=== PATIENT | female | born 1985 | race Caucasian/White ===

== ENCOUNTER → 2020-05-21 18:24 | Outpatient (CLI) | payer OTHER, SELFPAY ==
--- NOTE | 2020-05-21 18:31 | DI.MRI.S_ITS ---
PROCEDURE: MR THORACIC SPINE WO CON INDICATIONS: COLLAPSED VERTEBRA,NOT ELSEWHERE CLASSIFIED,SITE TECHNIQUE: Noncontrast sagittal T1 spine echo and T2 fast spin echo, sagittal STIR, axial T1 and T2 fast spin echo through the thoracic spine. COMPARISON: None. FINDINGS: Image quality: Excellent. Alignment and Curvature: There is normal bony alignment. Bone Marrow: Marrow is of normal overall signal. No acute vertebral body compression fractures. Spinal Cord: Visualized spinal cord is normal in size and signal. Paraspinous Soft Tissues: No paravertebral masses. Miscellaneous: On axial images, central canal and foramina appear widely patent at all scanned levels. Incidental note is made of the presence of a shallow disc protrusion at C6-C7. T12-L1: Cark-ne-mcefodsx right paracentral disc protrusion, which does not abut the cord. It may potentially impinge on the ventral horn of the right T12 nerve root. IMPRESSION: 1. No evidence acute compression fracture. 2. Mild chronic anterior vertebral body height loss involving T11 and T12. 3. At T12-L1 there is a mild to moderate right paracentral disc protrusion which may potentially impinge on the ventral horn of the right T12 nerve root. Question: Does this patient have right T12 dermatomal pain? 4. Incidental note made of a shallow disc protrusion at C6-C7. At C6-C7. Dictated by: Murtaza Godoy M.D. on 05/22/2020 at 8:25 Approved by: Murtaza Godoy M.D. on 05/22/2020 at 8:31
== END ==
PROVIDERS: Referring Provider Family Medicine; Visit Provider Family Medicine
DX: M48.50XA Collapsed vertebra, not elsewhere classified, site unspecified, initial encounter for fracture (principal); M51.25 Other intervertebral disc displacement, thoracolumbar region; M50.223 Other cervical disc displacement at C6-C7 level
CPT/HCPCS: 72146

== ENCOUNTER 2020-12-10 13:52 | Emergency (ER) | payer OTHER, SELFPAY ==
[2020-12-10 14:01] VITALS: BP 115/75; PULSE 66; RESP 18; TEMP 37.3; O2SAT 100
[2020-12-10 15:18] LABS: Add Manual Diff / Slide Review NO; Basophils Absolute Auto 100 /uL (0-100); Basophils Percent Auto 0.9 % (0-2); Eosinophils Absolute Auto 400 /uL (0-450); Eosinophils Percent Auto 3.2 % (2-4); Hemoglobin 12.7 g/dL (12.0-16.0); Lymphocytes Absolute Auto 3100 /uL (1100-4500); Lymphocytes Percent Auto 25.2 % (25-40); Mean Corpuscular HGB Conc 31.9 % (30-36); Mean Corpuscular Volume 84.8 fL (80-100); Monocytes Absolute Auto 900 /uL (0-900); Monocytes Percent Auto 7.2 % (3-14); Neutrophils Absolute Auto 7700 /uL (1500-7000); Neutrophils Percent Auto 63.5 % (50-75); Platelet Count 298 X10^3/uL (150-400); Red Blood Cell Count 4.72 X10^6/uL (4.0-5.2); Red Cell Distribution Width 13.6 % (11.6-14.8); White Blood Cell Count 12.1 X10^3/uL (4.5-11.0)
[2020-12-10 15:25] LABS: Alanine Aminotransferase 30 IU/L (<35); Albumin 4.8 g/dL (3.5-5.0); Albumin Globulin Ratio 1.4 (1.0-2.8); Alkaline Phosphatase 71 U/L (38-126); Aspartate Aminotransferase 46 IU/L (14-36); BUN Creatinine Ratio 11.8 (6-22); Bilirubin Total 0.3 mg/dL (0.2-1.3); Blood Urea Nitrogen 9 mg/dL (7-17); Calcium 9.3 mg/dL (8.4-10.2); Carbon Dioxide 26 mmol/L (22-32); Chloride 104 mmol/L (98-107); Estimated Glomerular Filt Rate > 60.0 mL/min (>60); Globulin 3.5 g/dL (1.7-4.1); Glucose 96 mg/dL (70-100); HEMOLYSIS < 15 (0-50); Lipase 171 U/L (23-300); Potassium 4.5 mmol/L (3.4-5.1); Sodium 139 mmol/L (137-145); Total Protein 8.3 g/dL (6.3-8.2)
--- NOTE | 2020-12-10 18:51 | ED.GENADULT ---
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 A tight gripping stabbing pain that begins just inside the right posterior lower ribs radiates to the right upper quadrant and then up toward the sternum and right clavicle. When it is there it takes her breath away there are times where it is less. There has times where she is unable to concentrate at work and she has been having difficulty sleeping. On November 29 she was seen at [facility] with labs and urine that were unremarkable and a CT scan of the abdomen showed mild inflammatory changes involving the low pelvic small bowel mesentery may indicate enteritis. Her primary care physician put her on antibiotics, she believes it is metronidazole, that did not influence pain. She did have oral contrast without CT but was not able to drink much volume. After her Nikole-en-Y bypass she can not have large volumes of liquid without causing dumping syndrome. She states that after the volume she did drink she was nauseated for about 3 days. She had a bowel movement this morning that she describes is normal and again, did not influence her pain. She describes no unusual weight loss, lower extremity edema, headaches or neurologic findings. Review of Systems Review of Systems Narrative: Remainder of complete review of systems is otherwise unremarkable except for that included in the HPI. Exam Narrative Exam Narrative: General: Healthy appearing, in no acute distress. Able to give a complete and coherent history. Well-nourished well-developed HEENT: Moist mucous membranes, normal sclera with reactive pupils, Neck: No JVD, supple Respiratory: Lungs are clear to auscultation, no wheezing no rales no rhonchi. Full and symmetrical air movement Cardiac: Regular rate and rhythm no murmurs no bruits Abdomen: Soft, nontender, good bowel tones, no flank pain is elicited on exam. She has no rebound and no guarding. Skin: Warm and dry, no rashes Neurologic: Grossly neurologically intact with no obvious asymmetries or abnormalities Extremities: No trauma, well perfused Psych: Cooperative, appropriate insight and affect Initial Vital Signs Initial Vital Signs: Vital Signs Temperature 99.2 F 12/10/20 14:01 Pulse Rate 66 12/10/20 14:01 Respiratory Rate 18 12/10/20 14:01 Blood Pressure 115/75 12/10/20 14:01 Pulse Oximetry 100 12/10/20 14:01 Course Orders Ordered: ED Orders 12/10/20 14:14 Complete Blood Count AUTO DIFF Stat Comprehensive Metabolic Panel Stat Lipase Stat Vital Signs Vital signs: Vital Signs - 8 hr 12/10/20 14:01 12/10/20 19:40 Temperature 99.2 F Pulse Rate 66 80 Respiratory Rate 18 14 Blood Pressure 115/75 100/62 Pulse Oximetry 100 100 Medical Decision Making Lab Data Result diagrams: 12/10/20 14:14 12/10/20 14:14 Labs: Lab Results 12/10/20 12/10/20 Range/Units 14:14 14:14 WBC 12.1 H (4.5-11.0) X10^3/uL RBC 4.72 (4.0-5.2) X10^6/uL Hgb 12.7 (12.0-16.0) g/dL Hct 40.0 (36-46) % MCV 84.8 (80-100) fL MCH 27.0 (26-34) PG MCHC 31.9 (30-36) % RDW 13.6 (11.6-14.8) % Plt Count 298 (150-400) X10^3/uL Neut % (Auto) 63.5 (50-75) % Lymph % (Auto) 25.2 (25-40) % [place] % (Auto) 7.2 (3-14) % Eos % (Auto) 3.2 (2-4) % Baso % (Auto) 0.9 (0-2) % Neut # (Auto) 7700 H (9129-7108) /uL Lymph # (Auto) 3100 (9119-9588) /uL [place] # (Auto) 900 (0-900) /uL Eos # (Auto) 400 (0-450) /uL Baso # (Auto) 100 (0-100) /uL Sodium 139 (137-145) mmol/L Potassium 4.5 (3.4-5.1) mmol/L Chloride 104 (98-107) mmol/L Carbon Dioxide 26 (22-32) mmol/L BUN 9 (7-17) mg/dL Creatinine 0.76 (0.52-1.04) mg/dL Estimated GFR > 60.0 (>60) mL/min BUN/Creatinine Ratio 11.8 (6-22) Glucose 96 (70-100) mg/dL Calcium 9.3 (8.4-10.2) mg/dL Total Bilirubin 0.3 (0.2-1.3) mg/dL AST 46 H (14-36) IU/L ALT 30 (<35) IU/L Alkaline Phosphatase 71 (38-126) U/L Total Protein 8.3 H (6.3-8.2) g/dL Albumin 4.8 (3.5-5.0) g/dL Globulin 3.5 (1.7-4.1) g/dL Albumin/Globulin Ratio 1.4 (1.0-2.8) Lipase 171 (23-300) U/L Urine Dip Bedside Urine Glucose Negative Bedside Urine Bilirubin - Negative Bedside Urine Ketone - Negative Urine Specific [place] 1.015 Bedside Urine Occult Blood - Negative Bedside Urine pH 6.0 Bedside Urine Protein - Negative Bedside Urine Urobilinogen - Negative Bedside Urine Nitrite - Negative Bedside Urine Leukocytes - Negative Esterase Point of care testing: Urine Dip Bedside Urine Glucose Negative Bedside Urine Bilirubin - Negative Bedside Urine Ketone - Negative Urine Specific [place] 1.015 Bedside Urine Occult Blood - Negative Bedside Urine pH 6.0 Bedside Urine Protein - Negative Bedside Urine Urobilinogen - Negative Bedside Urine Nitrite - Negative Bedside Urine Leukocytes - Negative Esterase [facility] Narrative Medical decision making narrative: 35-year-old woman with 2-3 weeks of right upper quadrant/flank pain. CT scan 2 weeks ago was suggestive of a possible enteritis however antibiotics did not influence her pain. Other possibility includes some type of internal hemorrhoid related to all of her surgeries. Offered repeating CT scan at this point with the reassurance the labs are essentially normal. Would recommend oral contrast in because she does have the Nikole-en-Y bypass in can only drink small volumes would recommend longer time to allow the contrast get lower into the abdomen. She does have a follow-up appointment with her primary care physician in 4 days. She is considering the option of the CT tonight in the ER verses reviewing issues with her primary care physician. The both options would be reasonable and she is not acutely ill or in need of emergent surgery. With shared decision making and recognizing that she is completely pain-free at this point she opted to not repeat the CT scan primarily due to not wanting to repeat oral contrast. She does have some faint medication left over after her recent hysterectomy and declined any additional medicine for discharge home. She does have a follow-up in a couple of days with her primary care doctor. I did encourage her to return if she is having acute pain. Again I do think that the possibility of an internal hernia is very real but given the normal CT 2 weeks ago I think that will need to involve more oral contrast and ideally be done while she is actually hurting. She recognizes this and does understand. She will return as needed. Discharge Plan Departure Patient Disposition: Home Clinical Impression: Abdominal pain Instructions: DI for Abdominal Pain-Adult Activity Restrictions/Additional Instructions: Thank you for coming in today I am sorry you are continuing to have this frustrating abdominal pain. Your lab work today was very reassuring. There is no evidence kidney failure, common bile duct stone, liver abnormalities, infection or intra-abdominal abscess. Your exam is also reassuring right now. One possibility that might explain this recurrent pain that your having is an internal hernia of some sort. These are frequently very difficult to fully diagnose. The ideal way to find it might be to repeat a CT scan with oral and IV contrast while you are having an acute episode of pain. You may need a referral to General surgery for further evaluation. At this time, I do think that follow-up with your primary doctor on Wednesday is absolutely appropriate. If you have recurrent pain please feel free to return to the ER. I wish you the best Referrals: Tisha Farmer, [Primary Care Provider] -
[2020-12-10 19:40] VITALS: BP 100/62; PULSE 80; RESP 14; O2SAT 100
--- NOTE | 2020-12-10 19:40 | PC.NURSE ---
Pt took her own blood sugar which showed 54. Provider aware and ok'd tatiana edwige, crackers, peanut butter. Pt a/o x 4. pink/warm/dry. c/o feeling 'shaky'
== END 2020-12-10 19:53 | disposition home or self-care (01) ==
PROVIDERS: Emergency Medicine; Emergency Provider Emergency Medicine; PCP Family Medicine
DX: R10.11 Right upper quadrant pain (principal)
CPT/HCPCS: 80053; 81003; 83690; 85025; 99282; 99283

== ENCOUNTER → 2021-02-10 08:02 | Outpatient (CLI) | payer OTHER, SELFPAY ==
[2021-02-10 11:29] LABS: COVID19 -Nasal RAPID Negative (Negative)
== END ==
PROVIDERS: PCP Family Medicine; Visit Provider Physician Assistant
DX: Z01.812 Encounter for preprocedural laboratory examination (principal); Z20.822 Contact with and (suspected) exposure to COVID-19
CPT/HCPCS: 87635

== ENCOUNTER 2021-02-12 13:24 | Day surgery (SDC) | payer OTHER, SELFPAY ==
--- NOTE | 2021-02-12 | PATH_ITS ---
[facility] Accession Number: [id number] . 01 Material submitted: . jejunum - JEJUNUM BIOPSY . 02 Diagnosis: Jejunum, Biopsy: Small bowel mucosa with no diagnostic abnormality. Negative for active inflammation, features of sprue, dysplasia, or malignancy. . MRV 02/14/2021 1115 Local . 02 Electronically signed: . Juan Gaytan MD, PhD, Pathologist NPI- [id number] . 01 Gross description: . JEJUNUM BIOPSY: Received in formalin are multiple fragment(s) of richardson, soft tissue measuring 0.1 x 0.1 x 0.1 cm to 0.3 x 0.3 x 0.2 cm submitted entirely in 1 cassette(s) /AMADO 02/13/2021 0154 Local . 02 Pathologist provided ICD-10: R10.9, R19.4 . 02 CPT . 433571 Performed at: 01 [facility] [address] [facility], [place], [place] [id number] MD Fede Monson MD Phone: [phone] Performed at: 02 [facility] [address] [place], [place] [id number] MD Yamilka Newton MD Phone: [phone]
[2021-02-12 13:49] VITALS: BP 113/72; PULSE 68; RESP 16; TEMP 37.1; O2SAT 100; BMI 23.5
--- NOTE | 2021-02-12 13:56 | PM.PREOP ---
Pre-operative Note COVID-19 COVID-19 status: Negative Interval Note History & Physical reviewed/Exam performed by Physician: Yes Changes to H&P: No ASA Class (for procedural sedation): II
--- NOTE | 2021-02-12 13:57 | PM.OP.EGD ---
Operative Date/Time/Diagnoses Date of procedure: 02/12/21 Pre-op diagnosis: See indication and findings Procedure & Clinicians Study performed: Enteroscopy Indications: Right upper quadrant pain and possible lesion in the upper small bowel on imaging Surgeon: Darrion Gold Procedure Notes Procedure in detail: After informed consent was obtained patient was placed in left lateral decubitus position. The video pediatric colonoscope was introduced into the oropharynx and with the patient's help swallowed into the esophagus. The esophagus stomach duodenum and 1st part of the jejunum were carefully examined on withdrawal. The scope was removed. The patient tolerated procedure well. Blood loss none Complications none Sedation mac Findings 1. Normal esophagus no GE junction completely wide open 2. 3-4 cm residual gastric pouch. Two clips seen at the distal anastomosis 3. End to side gastrojejunostomy 4. 50 cm Nikole limb culminating in a perfectly healthy anastomosis with multiple small clips. 5. Presumed distal limb completely normal for another 30 cm past the anastomosis. Biopsies taken No obvious reason for the word upper quadrant pain here. In addition I examined her today and her rib margin is completely nontender as is the right upper quadrant but she is not having any pain at the moment. We will discuss the findings above by telephone.
[2021-02-12] MEDS: SODIUM CHLORIDE 0.9% 1,000 ML 84 ML IV (14:02)
[2021-02-12 14:43] VITALS: BP 98/44; PULSE 66; RESP 17; TEMP 36.5; O2SAT 100
[2021-02-12 14:48] VITALS: BP 96/46; PULSE 60; RESP 14; O2SAT 100
[2021-02-12 14:53] VITALS: BP 96/44; PULSE 60; RESP 12; O2SAT 100
[2021-02-12 14:58] VITALS: BP 99/55; PULSE 59; RESP 18; TEMP 36.8; O2SAT 100
[2021-02-12 15:05] VITALS: BP 105/69; PULSE 69; RESP 16; TEMP 36.8; O2SAT 98
== END 2021-02-12 15:14 | disposition home or self-care (01) ==
PROVIDERS: PCP Family Medicine; Referring Provider Internal Medicine Gastroenterology; Visit Provider Internal Medicine Gastroenterology
PROC: 0DJ08ZZ Inspection of Upper Intestinal Tract, Via Natural or Artificial Opening Endoscopic (ICD-10-PCS; CPT 43235; principal; 2021-02-12 15:00)
PROC: 0DJD8ZZ Inspection of Lower Intestinal Tract, Via Natural or Artificial Opening Endoscopic (ICD-10-PCS; CPT 45378; 2021-02-12 15:00)
DX: R10.11 Right upper quadrant pain (principal); K58.9 Irritable bowel syndrome, unspecified; K21.9 Gastro-esophageal reflux disease without esophagitis; Z98.84 Bariatric surgery status
CPT/HCPCS: 43235; J2704

== ENCOUNTER → 2023-10-01 16:15 | Outpatient (CLI) | payer OTHER, SELFPAY ==
--- NOTE | 2023-10-01 16:17 | DI.US.S_ITS ---
PROCEDURE: US PELVIC COMPLETE INDICATIONS: right lateral pelvic pain TECHNIQUE: Real-time scanning was performed of the pelvic organs, with image documentation. Additional endovaginal scanning was necessary due to incomplete visualization of the adnexal and endometrial structures by transabdominal scanning. COMPARISON: None. FINDINGS: Uterus: Surgically absent Ovaries: The right ovary measures 3.0 x 1.7 x 2.0 cm, with a calculated ovarian volume of 5.2 cc. The left ovary measures 4.3 x 2.6 x 4.3 cm, with a calculated ovarian volume of 25.4 cc. Left ovarian cyst with debris measuring 2.3 x 1.9 x 2.8 centimeters. Less than 12 follicles can be seen in each ovary. No adnexal masses are seen. Other: No pathologic free abdominal or pelvic fluid. IMPRESSION: 1. Left ovarian cyst with debris measuring 2.8 centimeters, may represent a resolving hemorrhagic cyst versus endometrioma. Recommend short-term follow-up ultrasound to assess stability. 2. Right ovary is normal in appearance. Status post hysterectomy. We strive to produce accurate, complete, and clear reports of imaging services. To assist us in improving patient care, this report was composed using standard report templates and voice recognition software. Therefore, it may contain abnormal punctuation, insertions and/or omissions. Occasional wrong-word or sound-alike substitutions may occur. Though we review the report and make efforts to correct it, we do recommend that the report be read carefully in proper context to recognize any text inaccuracies. Dictated by: Juan Pablo Nagy M.D. on 10/01/2023 at 17:48 Approved by: Juan Pablo Nagy M.D. on 10/01/2023 at 17:50
== END ==
PROVIDERS: PCP Family Medicine; Referring Provider Student in an Organized Health Care Education/Training Program; Visit Provider Student in an Organized Health Care Education/Training Program
DX: N92.6 Irregular menstruation, unspecified (principal); N83.202 Unspecified ovarian cyst, left side; Z90.710 Acquired absence of both cervix and uterus
CPT/HCPCS: 76856